=== PATIENT | male | born 1940 | race Two or more races ===

== ENCOUNTER 2020-03-20 09:55 | Emergency (ER) | payer OTHER ==
[~2020-03-20] VITALS: Ht 160 cm; Wt 63.5 kg
[2020-03-20 10:42] LABS: Basophils # (auto) 0 10 ^3/uL (0-0.2); Basophils % (auto) 0.4 % (0.0-2.0); Eosinophils # (auto) 0.1 10 ^3/uL (0-0.8); Eosinophils % (auto) 2.3 % (0.0-7.0); Hematocrit 43.3 % (41.0-53.0); Hemoglobin 14.1 g/dL (13.5-17.5); Lymphocytes # (auto) 1.2 10 ^3/uL (0.4-5.4); Lymphocytes % (auto) 20.4 % (10.0-50.0); Mean Corpuscular Hemoglobin 29.4 pg (28.0-32.0); Mean Corpuscular Hgb Conc. 32.7 g/dL (32.0-36.0); Monocytes # (auto) 0.4 10 ^3/uL (0-1.3); Monocytes % (auto) 7.7 % (0.0-12.0); Neutrophils % (auto) 69.2 % (37.0-80.0); Platelet Count (auto) 231 10^3/uL (140-450); Red Blood Cells 4.81 10^6/uL (4.5-5.90); Red Cell Distribution Width 14.8 % (11.8-14.3); White Blood Cell 5.8 10^3/uL (4.4-10.8)
[2020-03-20 11:08] LABS: Albumin 3.8 g/dL (3.4-5.0); Anion Gap 5 (5-15); Blood Urea Nitrogen 12 mg/dL (7-18); Calcium 8.9 mg/dL (8.5-10.1); Carbon Dioxide 29 mmol/L (21-32); Chloride 105 mmol/L (98-107); Glucose 111 mg/dL (74-106); Sodium 139 mmol/L (136-145)
[2020-03-20 11:13] LABS: Alanine Aminotransferase 24 U/L (16-61); Alkaline Phosphatase 85 U/L (45-117); Aspartate Aminotransferase 17 U/L (15-37); BUN/Creatinine Ratio 11.9; Bilirubin, Total 0.7 mg/dL (0.2-1.0); GFR African American 91 mL/min; GFR Non-African American 76 mL/min; Total Protein 7.3 g/dL (6.4-8.2)
[2020-03-20] MEDS ORDERED: traMADol HCL 50 MG TAB PO ONE (12:00)
[2020-03-20 12:01] VITALS: BP 131/66
== END 2020-03-20 12:36 | disposition home or self-care (01) ==
LOC: ER 09:55
DX: M79.605 Pain in left leg (principal); R06.02 Shortness of breath; J44.9 Chronic obstructive pulmonary disease, unspecified; Z86.718 Personal history of other venous thrombosis and embolism
CPT/HCPCS: 36415; 71045; 80053; 84484; 85025; 85379; 93005; 93971